=== PATIENT | female | born 1935 | race Caucasian/White ===

== ENCOUNTER 2019-02-14 15:43 | Inpatient (IN) | payer MEDICARE ==
[~2019-02-14] VITALS: Ht 182.9 cm; Wt 69.6 kg
[2019-02-14] MEDS ORDERED: LORA0.5T PO (16:09)
[2019-02-14] MEDS ORDERED: FURO40TA4 PO (16:09)
[2019-02-14] MEDS ORDERED: GABA300C2 PO (16:09)
[2019-02-14] MEDS ORDERED: OMEP20TA8 PO (16:09)
[2019-02-14] MEDS ORDERED: LEVO100T PO (16:09)
[2019-02-14] MEDS ORDERED: FAMO-63 PO (16:09)
[2019-02-14] MEDS ORDERED: CITA20TA9 PO (16:09)
[2019-02-14 16:44] LABS: BACTERIA,URINE FEW /HPF (0-FEW); BILIRUBIN,URINE NEG (NEG); CLARITY,URINE HAZY; COLOR,URINE AMBER; GLUCOSE,URINE NEG (NEG); NITRITE,URINE NEG (NEG); RBC,URINE 0 /HPF (0-2); SQUAMOUS EPITHELIAL CELL,UR OCC /LPF; UROBILINOGEN,URINE 1 mg/dL (0.2 mg/dL); WBC,URINE OCC /HPF (0-4)
[2019-02-14 16:47] LABS: BASO % 0 % (0-3); EOS # 0.1 x10^3/uL (0.0-0.7); EOS % 1 % (0-3); HEMATOCRIT 43.6 % (36.0-47.0); HEMOGLOBIN 14.4 g/dL (12.0-15.5); LYMPH # 2.2 x10^3/uL (1.0-4.8); LYMPH % 24 % (24-48); MEAN CORPUSCULAR HEMOGLOBIN 29 pg (25-35); MEAN CORPUSCULAR HGB CONC 33 g/dL (31-37); MEAN CORPUSCULAR VOLUME 87 fL (79-100); MONO # 0.8 x10^3/uL (0.0-1.1); MONO % 9 % (0-9); NEUT % 66 % (31-73); PLATELET COUNT 192 x10^3/uL (140-400); RED BLOOD COUNT 4.99 x10^6/uL (3.50-5.40); RED CELL DISTRIBUTION WIDTH 12.8 % (11.5-14.5); WHITE BLOOD COUNT 9.1 x10^3/uL (4.0-11.0)
--- NOTE | 2019-02-14 16:47 | PHYS DOC ---
Adult General Chief Complaint Chief Complaint: MEDICAL CLEARANCE HPI HPI Patient is a 83 year old female who presents to the emergency department for medical clearance. The patient has been accepted to the [facility] unit here at [facility]. The patient has been brought to the [facility] for initial medical evaluation prior to admission. Patient has no acute complaints at this time. Has been admitted to the [facility] unit due to reported verbal aggression and changes in behavior. Patient has recently lost her within the last month which she states has caused her considerable sadness. States that she has occasionally had symptoms of indigestion which improved with use of Pepto-Bismol but denies any current symptoms. Review of Systems Review of Systems Constitutional: Denies fever or chills [] Eyes: Denies change in visual acuity, redness, or eye pain [] HENT: Denies nasal congestion or sore throat [] Respiratory: Denies cough or shortness of breath [] Cardiovascular: Denies chest pain or edema[] GI: Denies abdominal pain, nausea, vomiting, bloody stools or diarrhea [] : Denies dysuria or hematuria [] Musculoskeletal: Denies back pain or joint pain [] Integument: Denies rash or skin lesions [] Neurologic: Denies headache, focal weakness or sensory changes [] All other systems were reviewed and found to be within normal limits, except as documented in this note. Allergies Allergies Allergies Coded Allergies Type Severity Reaction Last Updated Verified Sulfa (Sulfonamide Antibiotics) Allergy Unknown 02/14/19 Yes Physical Exam Physical Exam Constitutional: Well developed, well nourished, no acute distress, non-toxic appearance. [] HENT: Normocephalic, atraumatic, bilateral external ears normal, oropharynx moist, no oral exudates, nose normal. [] Eyes: PERRLA, EOMI, conjunctiva normal, no discharge. [] Neck: Normal range of motion, no tenderness, supple, no stridor. [] Cardiovascular:Heart rate regular rhythm, no murmur [] Lungs & Thorax: Bilateral breath sounds clear to auscultation [] Abdomen: Bowel sounds normal, soft, no tenderness, no masses, no pulsatile masses. [] Skin: Warm, dry, no erythema, no rash. [] Back: No tenderness, no CVA tenderness. [] Extremities: No tenderness, no cyanosis, no clubbing, ROM intact, no edema. [] Neurologic: Alert and oriented X 3, normal motor function, normal sensory functi on, no focal deficits noted. [] Psychologic: Affect normal, judgement normal, mood normal. [] Current Patient Data Vital Signs Vital Signs Date Time Temp Pulse Resp B/P (MAP) Pulse Ox O2 Delivery O2 Flow Rate FiO2 02/14/19 16:37 97.9 84 18 95 Room Air Lab Results Laboratory Tests Test 02/14/19 15:50 02/14/19 16:20 Urine Collection Type Unknown Urine Color Lyn Urine Clarity Hazy Urine pH 6.5 Urine Specific [place] 1.020 Urine Protein Neg Urine Glucose (UA) Neg mg/dL Urine Ketones (Stick) Neg mg/dL Urine Blood Neg Urine Nitrite Neg Urine Bilirubin Neg Urine Urobilinogen Dipstick 1 mg/dL Urine Leukocyte Esterase Trace Urine RBC 0 /HPF Urine WBC Occ /HPF Urine Squamous Epithelial Cells Occ /LPF Urine Bacteria Few /HPF White Blood Count 9.1 x10^3/uL Red Blood Count 4.99 x10^6/uL Hemoglobin 14.4 g/dL Hematocrit 43.6 % Mean Corpuscular Volume 87 fL Mean Corpuscular Hemoglobin 29 pg Mean Corpuscular Hemoglobin Concent 33 g/dL Red Cell Distribution Width 12.8 % Platelet Count 192 x10^3/uL Neutrophils (%) (Auto) 66 % Lymphocytes (%) (Auto) 24 % Monocytes (%) (Auto) 9 % Eosinophils (%) (Auto) 1 % Basophils (%) (Auto) 0 % Neutrophils # (Auto) 6.0 x10^3uL Lymphocytes # (Auto) 2.2 x10^3/uL Monocytes # (Auto) 0.8 x10^3/uL Eosinophils # (Auto) 0.1 x10^3/uL Basophils # (Auto) 0.0 x10^3/uL Sodium Level 141 mmol/L Potassium Level 3.8 mmol/L Chloride Level 105 mmol/L Carbon Dioxide Level 32 mmol/L Anion Gap 4 Blood Urea Nitrogen 18 mg/dL Creatinine 1.0 mg/dL Estimated GFR (Cockcroft-Gault) 53.0 BUN/Creatinine Ratio 18 Glucose Level 118 mg/dL Calcium Level 8.7 mg/dL Magnesium Level 1.9 mg/dL Total Bilirubin 0.2 mg/dL Aspartate Amino Transf (AST/SGOT) 14 U/L Alanine Aminotransferase (ALT/SGPT) 19 U/L Alkaline Phosphatase 68 U/L Total Protein 6.5 g/dL Albumin 3.1 g/dL Albumin/Globulin Ratio 0.9 EKG EKG Interpreted by me: Heart rate 74 and a sinus rhythm, leftward axis, single PVC noted, no acute ST/T-wave abnormalities present[] Radiology/Procedures Radiology/Procedures Not performed[] Course & Med Decision Making Course & Med Decision Making Pertinent Labs and Imaging studies reviewed. (See chart for details) The patient is resting comfortably at this time and in no acute distress. Lab work unremarkable. The patient is medically cleared for admission to [facility] unit. Dragon Disclaimer Dragon Disclaimer This electronic medical record was generated, in whole or in part, using a voice recognition dictation system. Departure Departure: Impression: Primary Impression: Medical clearance for psychiatric admission Disposition: ADMITTED INPATIENT Admitting Physician: Other Condition: STABLE Referrals: PCP,NO (PCP) MICKEY NIX MD Feb 14, 2019 16:47
[2019-02-14 17:01] LABS: ALBUMIN 3.1 g/dL (3.4-5.0); ALBUMIN/GLOBULIN RATIO 0.9 (1.0-1.7); CALCIUM 8.7 mg/dL (8.5-10.1); MAGNESIUM 1.9 mg/dL (1.8-2.4); TOTAL BILIRUBIN 0.2 mg/dL (0.2-1.0); TOTAL PROTEIN 6.5 g/dL (6.4-8.2)
[2019-02-14 17:18] LABS: POTASSIUM 3.8 mmol/L (3.5-5.1)
--- NOTE | 2019-02-14 17:54 | EKG ---
[address] [address] Test Date: 2019-02-14 Test Time: 16:50:50 Pat Name: JOHNNY EVANGELISTA Department: Room: Gender: F [employer] Can[employer] Baster: DANY : 1935 Requested By: MICKEY NIX Order Number: [id number] Reading MD: Measurements Intervals Zenda Rate: 74 P: 90 AK: 172 QRS: -7 QRSD: 86 T: 52 QT: 410 QTc: 461 Interpretive Statements SINUS RHYTHM ATRIAL PREMATURE COMPLEX(ES) LEFTWARD AXIS NO SPECIFIC ECG ABNORMALITIES RI6.01 No previous ECG available for comparison
[2019-02-14] MEDS ORDERED: LEVO88TA4 PO (18:53)
[2019-02-14] MEDS ORDERED: POTA20TA4 PO (18:53)
[2019-02-14] MEDS ORDERED: LACT1CAP29 PO (18:53)
[2019-02-14] MEDS ORDERED: [UNRECOGNIZED DRUG - CODE] PO (18:53)
[2019-02-14] MEDS ORDERED: MEMA10TA PO (18:53)
[2019-02-14] MEDS ORDERED: MENT118G TP (18:55)
[2019-02-14 19:05] VITALS: BP 154/83
[2019-02-14] MEDS ORDERED: BISMUTH SUBSALICYLATE 262 MG TAB.CHEW PO PRN (19:15)
[2019-02-14] MEDS ORDERED: METHYL SALICYLATE/MENTHOL TOPICAL OINTMENT 29GM TUBE. TP PRN (19:15)
[2019-02-14] MEDS ORDERED: LORazepam 0.5 MG TABLET PO PRN (19:15)
[2019-02-14] MEDS ORDERED: MAGNESIUM HYDROXIDE 2,400 MG/30 ML ORAL.SUSP. PO PRN (19:30)
[2019-02-14] MEDS ORDERED: MAG HYDROX/AL HYDROX/SIMETH 30 ML ORAL.SUSP PO PRN (19:30)
[2019-02-14] MEDS: MEMANTINE 10 MG TABLET. PO SCH (20:38)
[2019-02-14] MEDS: FAMOTIDINE 20 MG TABLET PO SCH (20:38)
[2019-02-14] MEDS: GABAPENTIN 300 MG CAPSULE. PO SCH (20:38)
[2019-02-15 05:59] VITALS: BP 124/72
[2019-02-15] MEDS: POTASSIUM CHLORIDE 20 MEQ TABLET.ER. PO SCH (07:42)
[2019-02-15] MEDS: PANTOPRAZOLE 40 MG TABLET. PO SCH (07:42)
[2019-02-15] MEDS: LEVOTHYROXINE 88 MCG TABLET PO SCH (07:42)
[2019-02-15] MEDS: CITALOPRAM 20 MG TABLET. PO SCH (07:42)
[2019-02-15] MEDS: LACTOBACILLUS RHAMNOSUS GG 1 CAPSULE. PO SCH (07:43)
[2019-02-15] MEDS: MEMANTINE 10 MG TABLET. PO SCH ×2 (07:44→19:41)
[2019-02-15] MEDS: FUROSEMIDE 40 MG TABLET PO SCH (07:44)
[2019-02-15] MEDS: GABAPENTIN 300 MG CAPSULE. PO SCH ×3 (07:44→19:41)
[2019-02-15] MEDS ORDERED: ARIPiprazole 2 MG TABLET PO SCH (13:45)
[2019-02-15 16:09] VITALS: BP 138/58
[2019-02-15 18:54] LABS: THYROID STIM HORMONE (TSH) 0.018 uIU/mL (0.358-3.740)
[2019-02-15] MEDS: FAMOTIDINE 20 MG TABLET PO SCH (19:41)
[2019-02-15 20:06] LABS: THYROXINE 9.6 ug/dL (4.5-12.0)
[2019-02-16] MEDS: LEVOTHYROXINE 88 MCG TABLET PO SCH (05:52)
[2019-02-16 06:14] VITALS: BP 115/71
[2019-02-16] MEDS: PANTOPRAZOLE 40 MG TABLET. PO SCH (07:38)
[2019-02-16] MEDS: CITALOPRAM 20 MG TABLET. PO SCH (07:41)
[2019-02-16] MEDS: FUROSEMIDE 40 MG TABLET PO SCH (07:41)
[2019-02-16] MEDS: LACTOBACILLUS RHAMNOSUS GG 1 CAPSULE. PO SCH (07:41)
[2019-02-16] MEDS: POTASSIUM CHLORIDE 20 MEQ TABLET.ER. PO SCH (07:41)
[2019-02-16] MEDS: MEMANTINE 10 MG TABLET. PO SCH ×2 (07:42→19:32)
[2019-02-16] MEDS: GABAPENTIN 300 MG CAPSULE. PO SCH ×3 (07:43→19:32)
[2019-02-16] MEDS: ARIPiprazole 2 MG TABLET PO SCH (07:44)
[2019-02-16] MEDS: ACETAMINOPHEN 325 MG TABLET PO PRN (09:09)
--- NOTE | 2019-02-16 10:00 | PSYEV ---
DATE OF SERVICE: 02/15/2019 HISTORY OF PRESENT ILLNESS: This 83-year-old recently female who was [facility] because of increased behavior problems including confusion, verbal aggression, high level of anxiety and also paranoia. The patient was also exhibiting some cognitive deficits and has been under a lot of pressure dealing with her 's a week ago going through the . HISTORY OF PRESENT ILLNESS: The patient admits she had problems with the depression in the past about 10 years ago. At that time, she was dealing with some loss at home and also her doctor prescribed her antidepressants including Celexa and she continued that medication off and on since then. The patient also states her mother had problems with severe depression and she has to be in treatment most of her life and also her depression started when her younger brother was only 18 months old spilled boiling water accidentally and . The patient states her mother never recovered from that event and she was depressed that affected her life too. 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 The patient also stated that she has a full support of her friends and also one of her family member lives close by. The patient has 2 children. The patient also admits she is not sleeping well lately, her mind is racing all the time, and not able to grieve yet. The patient states her appetite is fair. The patient admits depression started approximately 3 months ago because the family and friends concerned about her decline in level of functioning because she was totally exhausted being the caregiver for her and the patient was not sleeping well, not eating well, and also not thinking clearly. PAST PSYCHIATRIC HISTORY: The patient had one depression 10 years ago and treated with antidepressants and currently she is taking Celexa 20 mg daily. The patient also had some counseling in the past. PAST MEDICAL HISTORY: History of sleep apnea, Parkinson's, GERD, fibromyalgia, hypertension, hyperlipidemia, and hypothyroidism. ALLERGIES: THE PATIENT ADMITTED TO BEING ALLERGIC TO SULFA DRUGS. PSYCHOSOCIAL HISTORY: The patient is from [place], [place], [facility] and she is the only child. The patient has high school education. 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 The patient has 2 children and she is close to them. 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 Her a week ago. The patient denies of any alcohol or substance abuse. The patient denied of any emotional or sexual abuse in the past. The patient also states mother diagnosed with depression, was in treatment for a long period of time. MENTAL STATUS EXAMINATION: The patient appeared to be of her stated age, casually dressed, able to make eye contact. The patient is able to walk with the walker; complaints of pain in her right knee. Apparently, she fell recently before coming here, but no visible injuries. The patient's speech was clear, spontaneous with normal rate and rhythm. Her affect and mood showed she had some blunting of affect. The patient did not exhibit any major problems with anxiety, no shakes, no tremors. The patient was able to give fairly good account of her problems and also she had a very good memory for past events and having some difficulty for recent events. The patient states she has been depressed, but never thought about suicide. No prior suicidal attempts. The patient is still struggling to understand what is going on with her. She has been under a lot of pressure dealing with all the problems including her 's and the and she did not have much time to grieve yet. The patient denies of any psychotic symptoms. The patient apparently had episodes she had done things that she cannot remember recently. She is oriented to surroundings. She knew the date and time. The patient was not able to do serial 7's. The patient is able to recall 2 objects out of 3 in 5 minutes. The patient appears to be functioning on an average level of intelligence. The patient's judgment fair, insight limited. STRENGTHS: The patient is apparently in good health, able to walk with the walker and apparently she is able to walk without a walker at home. The patient has high school education, was employed, was , recently . WEAKNESSES: The patient apparently showed some decline in her memory only for recent events. The patient is also depressed that may be affecting her cognitive functions at this time. ADMITTING DIAGNOSES: AXIS I: 1. Major depression, recurrent with psychotic features. 2. Generalized anxiety disorder. 3. Mild cognitive impairment. AXIS II: None. AXIS III: Sleep apnea, Parkinson's, GERD, fibromyalgia, hypertension, hyperlipidemia, and hypothyroidism. INITIAL TREATMENT PLAN: The patient will be admitted to the unit inpatient. The patient will be seen by the psychiatrist daily and also the patient will be seen by Dr. Tapia for physical exam. The patient's lab reviewed. CURRENT MEDICATIONS: Include Lasix 80 mg daily, citalopram 20 mg daily, potassium chloride 20 mEq daily, levothyroxine 88 mcg daily, Namenda 10 mg b.i.d., gabapentin 300 mg t.i.d., Pepcid 20 mg at night. She is also on p.r.n. lorazepam 0.5 mg t.i.d. p.r.n. LABORATORY DATA: The patient's lab reviewed, which are all within normal range except for glucose level of 118. The patient's albumin was 3.1. The patient's urinalysis was clear. The patient will be encouraged to attend all the activities. The patient will be seen daily and the patient will continue on her current medications. LENGTH OF STAY: 7-10 days. DISCHARGE CRITERIA: The patient is able to complete the evaluation and complete the treatment and being stable for 3 days without having any depressive symptoms and able to take care of herself. KELLY LOWERY MD DR: YASMIN/arlene JOB#: [id number] / [id number]
--- NOTE | 2019-02-16 10:01 | CONS ---
DATE OF CONSULTATION: 02/15/2019 CONSULT MEDICAL MANAGEMENT HISTORY OF PRESENT ILLNESS: The patient is an 83-year-old female patient, who was [facility] on account of increasing confusion, verbal aggression, anxious, and paranoid. Her has last week, all this in a background of dementia with behavioral disorder. PAST MEDICAL HISTORY: Significant for hypertension, hyperlipidemia, hypothyroidism, fibromyalgia, gastroesophageal reflux disease, Parkinson's disease, and sleep apnea. PAST PSYCHIATRIC HISTORY: Significant for dementia. PAST SURGICAL HISTORY: Unremarkable. FAMILY HISTORY: Noncontributory. SOCIAL HISTORY: She is . Her only recently and she has a son and daughter. She has never smoked, does not drink alcohol, and she is retired from the [employer]. REVIEW OF SYSTEMS: As per history of present illness. ALLERGIES: SHE IS ALLERGIC TO SULFA DRUGS. MEDICATIONS: She is currently on following medications: She is on gabapentin 300 mg 3 times a day, citalopram hydrobromide 20 mg once a day, lorazepam 0.5 mg 3 times a day as needed for anxiety and agitation. She is on Namenda 10 mg twice a day, potassium chloride 20 mEq once a day, furosemide 80 mg daily, bismuth subsalicylate 2 tablets every hour as needed, famotidine 20 mg at bedtime, omeprazole 20 mg daily, lactobacillus combo for probiotic 2 capsules p.o. daily, levothyroxine sodium 88 mcg once a day, menthol for Biofreeze 1 application topically 4 times a day. PHYSICAL EXAMINATION: GENERAL: On examining her, the patient was sitting at the edge of the bed comfortably in no apparent respiratory distress. There was no pallor, jaundice, cyanosis, or thyromegaly. No jugular venous distension. No limb edema. VITAL SIGNS: Her heart rate was 88, blood pressure is 124/72, temperature was 98.2, respiratory rate was 18 and oxygen saturation was 97% on room air. HEAD, EYES, EARS, NOSE, AND THROAT: Showed normocephalic, atraumatic. NECK: Supple. HEART: Showed normal first and second heart sounds. No gallop, rub or murmur. CHEST: Clear to auscultation. No crepitation or rhonchi. ABDOMEN: Distended, soft, no gallop. No guarding or rigidity. No organomegaly. All hernial orifices intact. Bowel sounds normal. NEUROLOGIC: She is awake, alert, responding appropriately. All cranial nerves intact. EXTREMITIES: She moves extremities without difficulty. She ambulates without assistance or assistive devices. LABORATORY DATA: Showed that her white cell count of 9100, hemoglobin 14.4, hematocrit 43.6, MCV 87 and platelet count 292,000 with normal manual differential. Her chemistry showed a serum sodium 141, potassium 3.8, chloride 105, bicarbonate 32, anion gap of 4, BUN 18, creatinine 1, estimated GFR was 53 mL per minute. Her glucose was 118, calcium was 8.7, and magnesium was 1.9. Total bilirubin, AST, ALT, alkaline phosphatase were normal. Total protein was 6.5, albumin 3.1. Her urinalysis was essentially unremarkable and was negative. It was negative for nitrite, trace of leukocyte esterase, no rbc's, occasional wbc's, and very few bacteria. IMPRESSION: In summary, this is an 83-year-old female patient, who was admitted on account of increasing confusion, verbal aggression, anxious, paranoid, her on the last week, all this in a background of dementia with behavioral disorder. Medically, she is known to have hypothyroidism, gastroesophageal reflux disease. She has also peripheral neuropathy, hyperlipidemia, fibromyalgia, obstructive sleep apnea, and Parkinson's disease. All in all, the patient seems to be stable. All her vital signs are within normal range. Her lab work are all normal. Thank you, Dr. Jaquez, for allowing me to participate in the care of this patient. HIREN WONG MD DR: TREVON/arlene JOB#: [id number] / [id number]
[2019-02-16 15:41] VITALS: BP 134/71
[2019-02-16] MEDS: CHOLECALCIFEROL (VITAMIN D3) 50,000 UNIT CAPSULE PO SCH (18:33)
[2019-02-16] MEDS: FAMOTIDINE 20 MG TABLET PO SCH (19:32)
--- NOTE | 2019-02-17 03:48 | PN ---
DATE: 02/16/2019 SUBJECTIVE: The patient was seen today, met with the staff, chart reviewed. The patient continues to adjust to the unit, still experiencing high level of anxiety, occasional confusional episodes, but most of the time she is oriented to her surroundings. The patient is still anxious and nervous. The patient denies feeling depressed today. OBSERVATION: VITAL SIGNS: Temperature 98.0, blood pressure 115/71, pulse 77, respirations 20, O2 sat 95%. Slept about 7 hours last night. The patient's appetite improved. LABORATORY DATA: Reviewed, which are all within the normal range except for hemoglobin A1c was 6, triglycerides 210, LDL 66, HDL 25. TSH was 0.018. CURRENT MEDICATIONS: Include Abilify 1 mg daily, citalopram 20 mg daily, Namenda 10 mg b.i.d., gabapentin 300 mg t.i.d., lorazepam 0.5 mg t.i.d. p.r.n. The patient is currently not presenting with any major side effects, no major medical issues. The patient is participating in all the activities. The patient still has mild cognitive deficits. The patient is oriented to surroundings. The patient's affect is somewhat blunted. The patient is not complaining of any problems with increased anxiety and agitation at this time. ASSESSMENT: 1. Major depression, recurrent with psychotic features. 2. Generalized anxiety disorder. 3. Mild cognitive impairment. PLAN: To continue with the treatment. Continue to monitor for any side effects. LENGTH OF STAY: 7-10 days. KELLY LOWERY MD DR: YASMIN/arlene JOB#: [id number] / [id number]
[2019-02-17] MEDS: LEVOTHYROXINE 88 MCG TABLET PO SCH (05:41)
[2019-02-17 06:01] VITALS: BP 123/76
[2019-02-17] MEDS: LACTOBACILLUS RHAMNOSUS GG 1 CAPSULE. PO SCH (08:09)
[2019-02-17] MEDS: POTASSIUM CHLORIDE 20 MEQ TABLET.ER. PO SCH (08:09)
[2019-02-17] MEDS: FUROSEMIDE 40 MG TABLET PO SCH (08:09)
[2019-02-17] MEDS: ARIPiprazole 2 MG TABLET PO SCH (08:09)
[2019-02-17] MEDS: GABAPENTIN 300 MG CAPSULE. PO SCH ×3 (08:10→19:29)
[2019-02-17] MEDS: MEMANTINE 10 MG TABLET. PO SCH ×2 (08:10→19:29)
[2019-02-17] MEDS: CITALOPRAM 20 MG TABLET. PO SCH (08:10)
[2019-02-17] MEDS: PANTOPRAZOLE 40 MG TABLET. PO SCH (08:10)
[2019-02-17 15:51] VITALS: BP 123/71
[2019-02-17] MEDS: FAMOTIDINE 20 MG TABLET PO SCH (19:29)
[2019-02-18] MEDS: LEVOTHYROXINE 88 MCG TABLET PO SCH (05:41)
[2019-02-18 06:04] VITALS: BP 155/71
[2019-02-18] MEDS: POTASSIUM CHLORIDE 20 MEQ TABLET.ER. PO SCH (07:47)
[2019-02-18] MEDS: FUROSEMIDE 40 MG TABLET PO SCH (07:47)
[2019-02-18] MEDS: MEMANTINE 10 MG TABLET. PO SCH ×2 (07:47→19:26)
[2019-02-18] MEDS: ARIPiprazole 2 MG TABLET PO SCH (07:50)
[2019-02-18] MEDS: LACTOBACILLUS RHAMNOSUS GG 1 CAPSULE. PO SCH (07:50)
[2019-02-18] MEDS: PANTOPRAZOLE 40 MG TABLET. PO SCH (07:51)
[2019-02-18] MEDS: CITALOPRAM 20 MG TABLET. PO SCH (07:51)
[2019-02-18] MEDS: GABAPENTIN 300 MG CAPSULE. PO SCH ×3 (07:54→19:27)
[2019-02-18] MEDS: ACETAMINOPHEN 325 MG TABLET PO PRN (08:41)
--- NOTE | 2019-02-18 15:00 | PN ---
DATE: 02/17/2019 SUBJECTIVE: The patient was seen today, met with the staff, chart reviewed and also participated in the treatment review conference and also spoke with the patient's family members, daughter and son with regard to the patient's current problems and progress. Staff reports that patient is improving, still having difficulty communicating her feelings at times and has been tearful at times, talking about losing her , but no evidence of any major behavior problems. The patient is able to orient herself interacting with the staff and residents, but the family reports on their visit, they saw patient being confused and also she told them there was no outside. Family also reported that the patient had a CT scan prior to coming here and lately she is also having problems with slurred speech at times and wanted to know whether she could have an MRI. OBSERVATION: VITAL SIGNS: Temperature 97.2, blood pressure 123/76, pulse 70, respirations 18, O2 sat 96%. Slept about 7 hours last night. The patient's appetite improved. Staff reports no major problems, no side effects. The patient's lab reviewed. The patient's 25-OH vitamin D level was 18.1, which was low. The patient's current medications includes Abilify 1 mg daily, citalopram 20 mg daily, Namenda 10 mg b.i.d., gabapentin 300 mg t.i.d., also lorazepam 0.5 mg t.i.d. p.r.n. The patient continued to exhibit mild cognitive deficits, but she is oriented to surroundings. The patient's affect somewhat blunted. ASSESSMENT: 1. Major depression, recurrent with psychotic features. 2. Generalized anxiety disorder. 3. Mild cognitive impairment. PLAN: To continue with the treatment. Also, request for Neurology consult and also if possible to get MRI of the brain to rule out transient ischemic attacks. LENGTH OF STAY: Seven days. KELLY LOWERY MD DR: YASMIN/arlene JOB#: [id number] / [id number]
[2019-02-18 15:46] VITALS: BP 100/56
[2019-02-18] MEDS: FAMOTIDINE 20 MG TABLET PO SCH (19:26)
--- NOTE | 2019-02-19 05:35 | PN ---
DATE: 02/18/2019 SUBJECTIVE: The patient was seen today, met with the staff, chart reviewed. Staff reports no major problems. The patient still tends to isolate herself, but her ADLs are adequate. The patient is sleeping better. Appetite is fair. The patient admits to feeling depressed being here and wanting to go home. OBSERVATION: VITAL SIGNS: Temperature 97.9, blood pressure 154/71, pulse 62, respirations 20, O2 sat 96%. GENERAL: Slept about 8 hours last night. The patient is not complaining of having any problems. No evidence of any psychotic symptoms. The patient is oriented to surroundings. She knew the date, time, month and year. The patient admits sometimes she has difficulty with recall. The patient was able to repeat 3 objects and able to recall 3 objects in 5 minutes. The patient still has some problems with attention span and concentration. The patient does admit she has difficulty at times forgetting things, but not to the point that never been confused. The patient also asked about her statement to the family members when they visited her that she was mixing up with the day and night and also she told them she saw snow outside. The patient denies about this. Staff since admission has not observed any evidence of major cognitive deficits, confusion, or having any psychosis. MEDICATIONS: The patient's current medications include Abilify 1 mg daily, citalopram 20 mg daily, Namenda 10 mg b.i.d., gabapentin 300 mg t.i.d. She is also on lorazepam 0.5 mg t.i.d. p.r.n. ASSESSMENT: 1. Major depression, recurrent with psychotic features. 2. Generalized anxiety disorder. 3. Mild cognitive impairment. PLAN: To continue with the treatment. The patient is not having any side effects. We are also requesting a Neurology consult. KELLY LOWERY MD DR: YASMIN/arlene JOB#: [id number] / [id number]
[2019-02-19] MEDS: LEVOTHYROXINE 88 MCG TABLET PO SCH (05:44)
[2019-02-19 06:09] VITALS: BP 151/74
[2019-02-19] MEDS: ARIPiprazole 2 MG TABLET PO SCH (07:33)
[2019-02-19] MEDS: PANTOPRAZOLE 40 MG TABLET. PO SCH (07:35)
[2019-02-19] MEDS: POTASSIUM CHLORIDE 20 MEQ TABLET.ER. PO SCH ×2 (07:35→07:48)
[2019-02-19] MEDS: MEMANTINE 10 MG TABLET. PO SCH ×2 (07:48→19:28)
[2019-02-19] MEDS: FUROSEMIDE 40 MG TABLET PO SCH (07:50)
[2019-02-19] MEDS: LACTOBACILLUS RHAMNOSUS GG 1 CAPSULE. PO SCH (07:51)
[2019-02-19] MEDS: CITALOPRAM 20 MG TABLET. PO SCH (07:52)
[2019-02-19] MEDS: GABAPENTIN 300 MG CAPSULE. PO SCH ×3 (07:59→19:29)
[2019-02-19] MEDS: ACETAMINOPHEN 325 MG TABLET PO PRN (11:00)
[2019-02-19 15:41] VITALS: BP 129/75
[2019-02-19] MEDS: FAMOTIDINE 20 MG TABLET PO SCH (19:28)
--- NOTE | 2019-02-19 21:56 | PDOC ---
Exam Note: Luis E Note: Please also refer to the separate dictated note~for this date of service dictated separately.~Patient seen individually. Discussed the patient with Nursing staff reviewed the chart.~Reviewed interim history and current functioning. Reviewed vital signs,~Labs/ Radiology~and current medications noted below. Continue current treatment with the changes noted in the dictated addendum note Assessment: Vital Signs/I&O: Vital Signs Date Time Temp Pulse Resp B/P (MAP) Pulse Ox O2 Delivery O2 Flow Rate FiO2 02/19/19 15:41 98.6 85 18 129/75 (93) 96 Room Air I & O 02/18/19 02/18/19 02/19/19 14:59 22:59 06:59 Intake Total 720 ml 360 ml Balance 720 ml 360 ml Current Medications: I have reviewed the current psychotropics carefully including drug interactions. Risk benefit ratio favors no change other than as noted in my dictated progress note. Diagnosis: Problems: (1) Anxiety disorder (2) Major depressive disorder, recurrent episode (3) Mild cognitive impairment JESSICA OSPINA MD Feb 19, 2019 21:56
--- NOTE | 2019-02-20 01:01 | CONS ---
DATE OF CONSULTATION: REFERRING PHYSICIAN: Dr. Jaquez/Sudhakar. REASON FOR CONSULTATION: Worsening of dementia. HISTORY OF PRESENT ILLNESS: This is an 83-year-old right-handed female who was admitted on 02/14/2019 on account of increasing symptoms of confusion, paranoid, anxiety and verbal aggressive behavior. The symptoms have been present for the last few weeks and worsened after her last week. Neuro consult was requested because of acute mental status changes. During the interview, the patient stated she is very sad because she lost her who recently. She complains of being tired, having generalized muscle pain and she related that to fibromyalgia along with global headaches. The patient also complains of arthritic pain all over her body. She denies chest pain, shortness of breath or palpitation, dysarthria, dysphagia, weakness or paresthesia. PAST MEDICAL HISTORY: Significant for hypertension, hyperlipidemia, fibromyalgia, hypothyroidism, GERD, Parkinson's disease and sleep apnea. PAST SURGICAL HISTORY: Negative. PSYCHIATRIC HISTORY: Significant for dementia. FAMILY HISTORY: Noncontributory. SOCIAL HISTORY: The patient is . Her recently. She denies smoking, alcohol drinking, or illicit drug use. She is retired from government job. ALLERGIES: SULFA DRUGS. CURRENT HOME MEDICATIONS: Gabapentin 300 mg 3 times daily, citalopram 20 mg daily, lorazepam 0.5 mg 3 times daily for anxiety and agitation, Namenda 10 mg twice daily, potassium 20 mEq daily, Lasix 80 mg daily, famotidine 20 mg at bedtime, omeprazole 20 mg daily, levothyroxine 88 mcg daily. REVIEW OF SYSTEMS: A 10-point review of system was performed as mentioned above in history of present illness. PHYSICAL EXAMINATION: GENERAL: Well-developed, well-nourished female, not in acute distress. VITAL SIGNS: Blood pressure 100/56, respiratory rate is 17, pulse is 67 and regular, temperature 98, oxygen saturation 97% on room air. HEENT: Normocephalic, atraumatic, otherwise unremarkable. NECK: Supple, negative for carotid bruit, lymphadenopathy or thyromegaly. LUNGS: Clear to A and P. CARDIOVASCULAR: Regular rhythm, normal S1, S2. There is no S3, S4 or murmur. ABDOMEN: Soft. Bowel sounds positive. EXTREMITIES: Negative for cyanosis, clubbing or pitting edema. MENTAL STATUS: The patient is alert and oriented x 3. The speech is fluent. There is no language dysfunction. Memory patient recalls 2/3 immediately and after 1 and 3 minutes. Judgment and abstract thinking are normal. The patient denies hallucination or delusion. The patient has good judgment and patient has good calculation. CRANIAL NERVES: Visual lund are full. The pupils are reactive to light and accommodation. The extraocular movements are intact. There is no nystagmus. There is no facial motor or sensory deficit. Hearing is intact bilaterally. The palate is elevated symmetrically. Sternocleidomastoid muscles are powerful bilaterally. The patient shrugs her shoulders symmetrically, protrudes her tongue in the midline without fasciculation or atrophy. MOTOR EXAMINATION: No focal muscle bulk seen. The tone was normal. The strength was 4/5 throughout. Sensory examination revealed normal pinprick, light touch, vibratory and position senses. Deep tendon reflexes were symmetric and hypoactive with absent Achilles responses. Gait: The patient has a good stand and she uses a walker for ambulation. LABORATORY DATA: From 02/14/2019, CBC revealed white blood cells of 9.1, hemoglobin 14.4, hematocrit 43.6, platelet count 192,000. Chemistry revealed sodium 141, potassium 3.8, chloride 105, CO2 at 32, BUN 18, creatinine 1, glucose 118. Hemoglobin A1c is 6, calcium 8.7, magnesium is normal. Iron is normal. Liver enzymes are normal. Lipid profile revealed high cholesterol at 210 with low HDL at 25 and low vitamin D and low TSH with normal T4 and T3. Urinalysis, trace of leukocyte esterase, otherwise, unremarkable. IMPRESSION: 1. History of dementia with current exacerbation, probably due to recent 's . 2. Major depression with possible intermittent psychotic features. 3. Anxiety disorder. 4. Multiple medical problems include gastroesophageal reflux disease, obstructive sleep apnea, fibromyalgia, hypertension, hyperlipidemia and hypothyroidism. RECOMMENDATIONS: 1. Continue with current medical and psychiatric care. 2. We will follow up the patient and evaluate her again as she has had history of Parkinson disease. M Jamal SKAGGS MD DR: KWADWO/arlene JOB#: [id number] / [id number]
[2019-02-20] MEDS: LEVOTHYROXINE 88 MCG TABLET PO SCH (05:27)
[2019-02-20 06:06] VITALS: BP 154/66
[2019-02-20] MEDS: FUROSEMIDE 40 MG TABLET PO SCH (08:16)
[2019-02-20] MEDS: LACTOBACILLUS RHAMNOSUS GG 1 CAPSULE. PO SCH (08:16)
[2019-02-20] MEDS: ARIPiprazole 2 MG TABLET PO SCH (08:17)
[2019-02-20] MEDS: PANTOPRAZOLE 40 MG TABLET. PO SCH (08:19)
[2019-02-20] MEDS: POTASSIUM CHLORIDE 20 MEQ TABLET.ER. PO SCH (08:19)
[2019-02-20] MEDS: MEMANTINE 10 MG TABLET. PO SCH ×2 (08:19→20:53)
[2019-02-20] MEDS: SERTRALINE 50 MG TABLET. PO SCH (08:21)
[2019-02-20] MEDS: GABAPENTIN 300 MG CAPSULE. PO SCH ×3 (08:21→20:53)
--- NOTE | 2019-02-20 10:02 | RAD ---
EXAM: CT HEAD WITHOUT CONTRAST. HISTORY: Altered mental status, falls. TECHNIQUE: Computed tomography of the head was performed without intravenous contrast. COMPARISON: None. FINDINGS: There is no intracranial hemorrhage. There are chronic lacunar infarcts bilaterally in the caudate heads. There is moderate chronic microangiopathic white matter change elsewhere. Prominence of the lateral ventricles and hemispheric sulci indicates mild atrophy. The visualized paranasal sinuses appear clear. The orbits are unremarkable. The temporal bones are unremarkable. The calvarium reveals no suspicious lesions. There are atherosclerotic calcifications of the internal carotid and vertebral arteries. IMPRESSION: 1. No acute intracranial findings. 2. Bilateral basal ganglia chronic lacunar infarction. Moderate chronic microangiopathic white matter change. 3. Mild chronic microangiopathic white matter change. *One or more of the following individualized dose reduction techniques were utilized for this examination: 1. Automated exposure control. 2. Adjustment of the mA and/or kV according to patient size. 3. Use of iterative reconstruction technique. Electronically signed by: Joana Quiroz MD (02/20/2019 9:59 AM) [facility]
[2019-02-20 16:43] VITALS: BP 111/78
[2019-02-20] MEDS: FAMOTIDINE 20 MG TABLET PO SCH (20:52)
--- NOTE | 2019-02-20 22:36 | PDOC ---
Exam Note: Luis E Note: Please also refer to the separate dictated note~for this date of service dictated separately.~Patient seen individually. Discussed the patient with Nursing staff reviewed the chart.~Reviewed interim history and current functioning. Reviewed vital signs,~Labs/ Radiology~and current medications noted below. Continue current treatment with the changes noted in the dictated addendum note Assessment: Vital Signs/I&O: Vital Signs Date Time Temp Pulse Resp B/P (MAP) Pulse Ox O2 Delivery O2 Flow Rate FiO2 02/20/19 16:43 97.8 73 18 111/78 (89) 96 02/19/19 15:41 Room Air I & O 02/19/19 02/19/19 02/20/19 14:59 22:59 06:59 Intake Total 600 ml 360 ml 120 ml Balance 600 ml 360 ml 120 ml Current Medications: Meds: Current Medications Medications (Trade) Dose Ordered Sig/Deuce Route PRN Reason Start Time Stop Time Status Last Admin Dose Admin Sertraline HCl (Zoloft) 50 mg DAILY PO 02/20/19 09:00 02/20/19 08:21 I have reviewed the current psychotropics carefully including drug interactions. Risk benefit ratio favors no change other than as noted in my dictated progress note. Diagnosis: Problems: (1) Anxiety disorder (2) Major depressive disorder, recurrent episode (3) Mild cognitive impairment JESSICA OSPINA MD Feb 20, 2019 22:36
[2019-02-21 06:02] VITALS: BP 149/72
[2019-02-21] MEDS: LEVOTHYROXINE 88 MCG TABLET PO SCH (06:19)
[2019-02-21] MEDS: ACETAMINOPHEN 325 MG TABLET PO PRN (06:19)
[2019-02-21] MEDS: LACTOBACILLUS RHAMNOSUS GG 1 CAPSULE. PO SCH (08:05)
[2019-02-21] MEDS: GABAPENTIN 300 MG CAPSULE. PO SCH ×3 (08:06→19:58)
[2019-02-21] MEDS: SERTRALINE 50 MG TABLET. PO SCH (08:06)
[2019-02-21] MEDS: ARIPiprazole 2 MG TABLET PO SCH (08:06)
[2019-02-21] MEDS: MEMANTINE 10 MG TABLET. PO SCH ×2 (08:06→19:57)
[2019-02-21] MEDS: PANTOPRAZOLE 40 MG TABLET. PO SCH (08:06)
[2019-02-21 08:07] LABS: BASO % 1 % (0-3); EOS # 0.1 x10^3/uL (0.0-0.7); EOS % 1 % (0-3); HEMATOCRIT 42.3 % (36.0-47.0); HEMOGLOBIN 13.9 g/dL (12.0-15.5); LYMPH # 1.8 x10^3/uL (1.0-4.8); LYMPH % 24 % (24-48); MEAN CORPUSCULAR HEMOGLOBIN 29 pg (25-35); MEAN CORPUSCULAR HGB CONC 33 g/dL (31-37); MEAN CORPUSCULAR VOLUME 88 fL (79-100); MONO # 0.7 x10^3/uL (0.0-1.1); MONO % 10 % (0-9); NEUT # 4.8 x10^3uL (1.8-7.7); NEUT % 65 % (31-73); PLATELET COUNT 155 x10^3/uL (140-400); RED CELL DISTRIBUTION WIDTH 13.3 % (11.5-14.5); WHITE BLOOD COUNT 7.4 x10^3/uL (4.0-11.0)
[2019-02-21] MEDS: POTASSIUM CHLORIDE 20 MEQ TABLET.ER. PO SCH (08:07)
[2019-02-21] MEDS: FUROSEMIDE 40 MG TABLET PO SCH (08:07)
[2019-02-21 08:23] LABS: ALBUMIN 3.2 g/dL (3.4-5.0); ALBUMIN/GLOBULIN RATIO 1.1 (1.0-1.7); CALCIUM 8.9 mg/dL (8.5-10.1); CREATININE 0.8 mg/dL (0.6-1.0); GFR 68.5; POTASSIUM 3.9 mmol/L (3.5-5.1); TOTAL BILIRUBIN 0.5 mg/dL (0.2-1.0); TOTAL PROTEIN 6.2 g/dL (6.4-8.2)
[2019-02-21 16:29] VITALS: BP 133/64
--- NOTE | 2019-02-21 17:36 | PN ---
DATE: 02/19/2019 PSYCHIATRIC PROGRESS NOTE This late entry, 02/19/2019, covers the elements not covered in my initial note. SUBJECTIVE: I met with the patient in the evening of 02/19/2019. Reviewed information from Dr. Barahona, who had covered for me over the past one week or so. The patient slept 6-1/4 hours previous night. She has been confused about the time. Her family visited in the afternoon and she felt her grandson was her son-in-law. Reviewed her past history. No history of alcohol abuse. about 2 weeks back and had been in the retirement for about 6 weeks. REVIEW OF SYSTEMS: Ambulation impaired with walker. No CV, , pulmonary, eye, ENT system symptoms on review. MENTAL STATUS EXAM: Oriented to herself, situation at times. Speech, moderate latency, coherent. Insight, judgment, recent memory is impaired. Language function intact. Attention span short. Mood and affect somewhat withdrawn, anxious, irritable at times, depressed. LABORATORY DATA: Reviewed. IMPRESSION: Major neurocognitive disorder, Alzheimer, vascular with delusion; depression, behavioral disturbance, major depressive disorder; anxiety disorder, unspecified. Rest unchanged. UA shows no growth on culture. PLAN: Change Celexa 20 mg a day to Zoloft 50 mg a day. Maintain Namenda 10 mg b.i.d., Abilify 1 mg a day. Make further adjustments as clinically indicated. JESSICA OSPINA MD DR: INOCENCIA/arlene JOB#: [id number] / [id number]
[2019-02-21] MEDS: FAMOTIDINE 20 MG TABLET PO SCH (19:57)
--- NOTE | 2019-02-21 22:29 | PDOC ---
Exam Note: Luis E Note: Please also refer to the separate dictated note~for this date of service dictated separately.~Patient seen individually. Discussed the patient with Nursing staff reviewed the chart.~Reviewed interim history and current functioning. Reviewed vital signs,~Labs/ Radiology~and current medications noted below. Continue current treatment with the changes noted in the dictated addendum note Assessment: Vital Signs/I&O: Vital Signs Date Time Temp Pulse Resp B/P (MAP) Pulse Ox O2 Delivery O2 Flow Rate FiO2 02/21/19 16:29 97.6 78 20 133/64 (87) 97 02/19/19 15:41 Room Air I & O 02/20/19 02/20/19 02/21/19 14:59 22:59 06:59 Intake Total 960 ml 480 ml Balance 960 ml 480 ml Labs: Laboratory Tests Test 02/21/19 07:26 White Blood Count 7.4 x10^3/uL (4.0-11.0) Red Blood Count 4.80 x10^6/uL (3.50-5.40) Hemoglobin 13.9 g/dL (12.0-15.5) Hematocrit 42.3 % (36.0-47.0) Mean Corpuscular Volume 88 fL (79-100) Mean Corpuscular Hemoglobin 29 pg (25-35) Mean Corpuscular Hemoglobin Concent 33 g/dL (31-37) Red Cell Distribution Width 13.3 % (11.5-14.5) Platelet Count 155 x10^3/uL (140-400) Neutrophils (%) (Auto) 65 % (31-73) Lymphocytes (%) (Auto) 24 % (24-48) Monocytes (%) (Auto) 10 % (0-9) H Eosinophils (%) (Auto) 1 % (0-3) Basophils (%) (Auto) 1 % (0-3) Neutrophils # (Auto) 4.8 x10^3uL (1.8-7.7) Lymphocytes # (Auto) 1.8 x10^3/uL (1.0-4.8) Monocytes # (Auto) 0.7 x10^3/uL (0.0-1.1) Eosinophils # (Auto) 0.1 x10^3/uL (0.0-0.7) Basophils # (Auto) 0.0 x10^3/uL (0.0-0.2) Sodium Level 142 mmol/L (136-145) Potassium Level 3.9 mmol/L (3.5-5.1) Chloride Level 106 mmol/L (98-107) Carbon Dioxide Level 31 mmol/L (21-32) Anion Gap 5 (6-14) L Blood Urea Nitrogen 19 mg/dL (7-20) Creatinine 0.8 mg/dL (0.6-1.0) Estimated GFR (Cockcroft-Gault) 68.5 BUN/Creatinine Ratio 24 (6-20) H Glucose Level 108 mg/dL (70-99) H Calcium Level 8.9 mg/dL (8.5-10.1) Total Bilirubin 0.5 mg/dL (0.2-1.0) Aspartate Amino Transferase (AST) 21 U/L (15-37) Alanine Aminotransferase (ALT) 20 U/L (14-59) Alkaline Phosphatase 50 U/L (46-116) Total Protein 6.2 g/dL (6.4-8.2) L Albumin 3.2 g/dL (3.4-5.0) L Albumin/Globulin Ratio 1.1 (1.0-1.7) Current Medications: I have reviewed the current psychotropics carefully including drug interactions. Risk benefit ratio favors no change other than as noted in my dictated progress note. Diagnosis: Problems: (1) Anxiety disorder (2) Major depressive disorder, recurrent episode (3) Mild cognitive impairment JESSICA OSPINA MD Feb 21, 2019 22:29
--- NOTE | 2019-02-21 22:53 | PN ---
DATE: 02/19/2019 SUBJECTIVE: The patient denies any new medical or neurological complaints. Sometime, she became somewhat confused about time; however, it has not reported by staff any events of confusion or acute mental status changes. OBJECTIVE: GENERAL: Well-developed, well-nourished female, not in acute distress. VITAL SIGNS: Blood pressure 151/74, respiratory rate 16, pulse 75, temperature 97.8, oxygen saturation 97% on room air. HEENT: Normocephalic, atraumatic, otherwise unremarkable. NECK: Supple. Negative for carotid bruit, lymphadenopathy or thyromegaly. LUNGS: Clear to A and P. CARDIOVASCULAR: Regular rhythm, normal S1, S2. There is no S3, S4 or murmur. ABDOMEN: Soft. Bowel sounds positive. EXTREMITIES: Negative for cyanosis, clubbing or pitting edema. NEUROLOGICAL EXAM: Mental status: The patient is alert and oriented x 3. Speech is fluent. There is no language dysfunction. The patient recalled 2/3 immediately and after 1 at 3 minutes. Judgment and abstract thinking are normal. The patient denies hallucination or delusion. Cranial nerves are intact. Motor Examination: No focal muscle bulk was seen. The tone was normal. The strength was 4/5 throughout. Sensory examination revealed normal pinprick, light touch, vibratory and position senses. Deep tendon reflexes were symmetric and hypoactive with absent Achilles responses. Gait: The patient has good stance; however, she uses a walker for ambulation. IMPRESSION: 1. History of dementia with possible recurrent exacerbation; however, her mental status has been improved since admission. 2. Major depression, anxiety disorders. 3. Multiple medical problems include gastroesophageal reflux disease, fibromyalgia, hypertension, hyperlipidemia, obstructive sleep apnea and hypothyroidism. RECOMMENDATIONS: 1. Would continue with current medical and psychiatric care. 2. Physical therapy evaluation for her gait. M Jamal SKAGGS MD DR: KWADWO/arlene JOB#: [id number] / [id number]
[2019-02-22 06:04] VITALS: BP 139/72
[2019-02-22] MEDS: LEVOTHYROXINE 88 MCG TABLET PO SCH (06:20)
[2019-02-22] MEDS: ACETAMINOPHEN 325 MG TABLET PO PRN (06:24)
[2019-02-22] MEDS: FUROSEMIDE 40 MG TABLET PO SCH (08:00)
[2019-02-22] MEDS: MEMANTINE 10 MG TABLET. PO SCH ×2 (08:00→19:24)
[2019-02-22] MEDS: ARIPiprazole 2 MG TABLET PO SCH (08:00)
[2019-02-22] MEDS: POTASSIUM CHLORIDE 20 MEQ TABLET.ER. PO SCH (08:01)
[2019-02-22] MEDS: SERTRALINE 50 MG TABLET. PO SCH (08:01)
[2019-02-22] MEDS: LACTOBACILLUS RHAMNOSUS GG 1 CAPSULE. PO SCH (08:01)
[2019-02-22] MEDS: PANTOPRAZOLE 40 MG TABLET. PO SCH (08:01)
[2019-02-22] MEDS: GABAPENTIN 300 MG CAPSULE. PO SCH ×3 (08:03→19:24)
--- NOTE | 2019-02-22 15:54 | PN ---
DATE: 02/20/2019 PSYCHIATRIC PROGRESS NOTE This late entry 02/20/2019 covers elements not covered in my initial note. SUBJECTIVE: I met with the patient in the evening. The patient slept [address] head shows chronic microvascular changes, nothing acute. She remains somewhat anxious with short-term memory deficits, but reasonably oriented. REVIEW OF SYSTEMS: No CV, , pulmonary, eye, ENT system symptoms on review. MENTAL STATUS EXAM: Oriented to herself and situation. Speech is coherent, abstraction fair, computation impaired, language function intact, attention span short. Mood and affect showing ongoing anxiety and depressive symptoms, but improved. LABORATORY DATA: Reviewed. IMPRESSION: Unchanged from initial note. PLAN: No change from initial note. MAN Reg OSPINA MD DR: INOCENCIA/arlene JOB#: [id number] / [id number]
[2019-02-22 16:05] VITALS: BP 128/79
[2019-02-22] MEDS: FAMOTIDINE 20 MG TABLET PO SCH (19:24)
--- NOTE | 2019-02-22 22:00 | PN ---
DATE: 02/21/2019 PSYCHIATRIC PROGRESS NOTE This is a late entry 02/21/2019, covers the elements not covered in my initial note. SUBJECTIVE: I met with the patient evening of 02/21/2019. The patient slept 6 hours previous night. She has been socializing with one of the other patients who is quite forgetful, but has been fairly appropriate. REVIEW OF SYSTEMS: No CV, , pulmonary, eye, ENT system symptoms on review. MENTAL STATUS EXAM: Oriented to herself and situation. Speech is coherent, abstraction fair, computation somewhat impaired, language function intact, attention span short. Mood and affect showing improvement. No active suicidal ideation. She has some mild short term memory deficits. LABORATORY DATA: Reviewed. IMPRESSION: Unchanged from initial note. PLAN: The patient is currently on Zoloft 75 mg a day. After she has had 3 doses of this, we will increase to 100 mg a day. Continue rest unchanged. JESSICA OSPINA MD DR: INOCENCIA/arlene JOB#: [id number] / [id number]
--- NOTE | 2019-02-22 22:32 | PDOC ---
Exam Note: Luis E Note: Please also refer to the separate dictated note~for this date of service dictated separately.~Patient seen individually. Discussed the patient with Nursing staff reviewed the chart.~Reviewed interim history and current functioning. Reviewed vital signs,~Labs/ Radiology~and current medications noted below. Continue current treatment with the changes noted in the dictated addendum note Assessment: Vital Signs/I&O: Vital Signs Date Time Temp Pulse Resp B/P (MAP) Pulse Ox O2 Delivery O2 Flow Rate FiO2 02/22/19 16:05 97.3 65 16 128/79 (95) 97 02/22/19 06:04 Room Air I & O 02/21/19 02/21/19 02/22/19 14:59 22:59 06:59 Intake Total 720 ml 480 ml Balance 720 ml 480 ml Current Medications: I have reviewed the current psychotropics carefully including drug interactions. Risk benefit ratio favors no change other than as noted in my dictated progress note. Diagnosis: Problems: (1) Anxiety disorder (2) Major depressive disorder, recurrent episode (3) Mild cognitive impairment JESSICA OSPINA MD Feb 22, 2019 22:32
[2019-02-23 06:02] VITALS: BP 164/80
[2019-02-23] MEDS: LEVOTHYROXINE 88 MCG TABLET PO SCH (06:03)
[2019-02-23] MEDS: PANTOPRAZOLE 40 MG TABLET. PO SCH (07:39)
[2019-02-23] MEDS: POTASSIUM CHLORIDE 20 MEQ TABLET.ER. PO SCH (07:40)
[2019-02-23] MEDS: ARIPiprazole 2 MG TABLET PO SCH (07:40)
[2019-02-23] MEDS: LACTOBACILLUS RHAMNOSUS GG 1 CAPSULE. PO SCH (07:42)
[2019-02-23] MEDS: FUROSEMIDE 40 MG TABLET PO SCH (07:44)
[2019-02-23] MEDS: MEMANTINE 10 MG TABLET. PO SCH ×2 (07:44→19:10)
[2019-02-23] MEDS: CHOLECALCIFEROL (VITAMIN D3) 50,000 UNIT CAPSULE PO SCH (07:52)
[2019-02-23] MEDS: GABAPENTIN 300 MG CAPSULE. PO SCH ×3 (07:52→19:10)
[2019-02-23] MEDS: SERTRALINE 25 MG TABLET. PO SCH (07:53)
[2019-02-23] MEDS: ACETAMINOPHEN 325 MG TABLET PO PRN (08:43)
[2019-02-23 15:24] VITALS: BP 123/54
[2019-02-23] MEDS: FAMOTIDINE 20 MG TABLET PO SCH (19:10)
--- NOTE | 2019-02-23 22:57 | PDOC ---
Exam Note: Luis E Note: Please also refer to the separate dictated note~for this date of service dictated separately.~Patient seen individually. Discussed the patient with Nursing staff reviewed the chart.~Reviewed interim history and current functioning. Reviewed vital signs,~Labs/ Radiology~and current medications noted below. Continue current treatment with the changes noted in the dictated addendum note Assessment: Vital Signs/I&O: Vital Signs Date Time Temp Pulse Resp B/P (MAP) Pulse Ox O2 Delivery O2 Flow Rate FiO2 02/23/19 15:24 97.9 79 19 123/54 (77) 95 02/23/19 06:02 Room Air I & O 02/22/19 02/22/19 02/23/19 15:00 23:00 07:00 Intake Total 480 ml 240 ml Balance 480 ml 240 ml Current Medications: Meds: Current Medications Medications (Trade) Dose Ordered Sig/Deuce Route PRN Reason Start Time Stop Time Status Last Admin Dose Admin Sertraline HCl (Zoloft) 75 mg DAILY PO 02/23/19 09:00 02/23/19 07:53 I have reviewed the current psychotropics carefully including drug interactions. Risk benefit ratio favors no change other than as noted in my dictated progress note. Diagnosis: Problems: (1) Anxiety disorder (2) Major depressive disorder, recurrent episode (3) Mild cognitive impairment JESSICA OSPINA MD Feb 23, 2019 22:57
[2019-02-24] MEDS: LEVOTHYROXINE 88 MCG TABLET PO SCH (05:48)
[2019-02-24 05:53] VITALS: BP 149/54
[2019-02-24] MEDS: SERTRALINE 25 MG TABLET. PO SCH (08:04)
[2019-02-24] MEDS: MEMANTINE 10 MG TABLET. PO SCH ×2 (08:04→19:19)
[2019-02-24] MEDS: POTASSIUM CHLORIDE 20 MEQ TABLET.ER. PO SCH (08:04)
[2019-02-24] MEDS: FUROSEMIDE 40 MG TABLET PO SCH (08:04)
[2019-02-24] MEDS: PANTOPRAZOLE 40 MG TABLET. PO SCH (08:05)
[2019-02-24] MEDS: ARIPiprazole 2 MG TABLET PO SCH (08:05)
[2019-02-24] MEDS: LACTOBACILLUS RHAMNOSUS GG 1 CAPSULE. PO SCH (08:05)
[2019-02-24] MEDS: GABAPENTIN 300 MG CAPSULE. PO SCH ×3 (08:07→19:19)
[2019-02-24 14:33] VITALS: BP 145/90
--- NOTE | 2019-02-24 15:13 | PN ---
DATE: 02/22/2019 PSYCHIATRIC PROGRESS NOTE This is a late entry of 02/22/2019. Covers elements not covered in my initial note. SUBJECTIVE: I met with the patient in the evening. The patient slept 7 hours previous night. Overall, she does have some short-term memory deficits, gets anxious, but doing reasonably well. She is somewhat less distractible. REVIEW OF SYSTEMS: No CV, , pulmonary, eye, ENT system symptoms on review. MENTAL STATUS EXAM: The patient is oriented to herself and situation. Speech is coherent at times, somewhat rapid consequent to anxiety. Abstraction fair. Computation, able to do one step on Serial 7's. No active suicidal or homicidal ideation. Attention span is short. LABORATORY DATA: Reviewed. IMPRESSION: Major depressive disorder, recurrent, in partial remission; major neurocognitive disorder; early Alzheimer; vascular with depression; history of delusion; anxiety disorder, unspecified. PLAN: Continue current psychotropics and increase Zoloft to 75 mg a day on 02/23/2019. Maintain Abilify 1 mg a day, Namenda 10 mg b.i.d. Adjust further as clinically indicated. MAN Reg OSPINA MD DR: INOCENCIA/arlene JOB#: [id number] / [id number]
[2019-02-24 15:47] VITALS: BP 119/73
[2019-02-24] MEDS: FAMOTIDINE 20 MG TABLET PO SCH (19:19)
--- NOTE | 2019-02-24 22:36 | PDOC ---
Exam Note: Luis E Note: Please also refer to the separate dictated note~for this date of service dictated separately.~Patient seen individually. Discussed the patient with Nursing staff reviewed the chart.~Reviewed interim history and current functioning. Reviewed vital signs,~Labs/ Radiology~and current medications noted below. Continue current treatment with the changes noted in the dictated addendum note Assessment: Vital Signs/I&O: Vital Signs Date Time Temp Pulse Resp B/P (MAP) Pulse Ox O2 Delivery O2 Flow Rate FiO2 02/24/19 15:47 97.9 61 16 119/73 (88) 95 02/24/19 14:33 Room Air I & O 02/23/19 02/23/19 02/24/19 15:00 23:00 07:00 Intake Total 960 ml 360 ml Balance 960 ml 360 ml Current Medications: I have reviewed the current psychotropics carefully including drug interactions. Risk benefit ratio favors no change other than as noted in my dictated progress note. Diagnosis: Problems: (1) Anxiety disorder (2) Major depressive disorder, recurrent episode (3) Mild cognitive impairment JESSICA OSPINA MD Feb 24, 2019 22:36
[2019-02-25] MEDS: LEVOTHYROXINE 88 MCG TABLET PO SCH (05:29)
[2019-02-25 05:47] VITALS: BP 156/68
[2019-02-25] MEDS: MEMANTINE 10 MG TABLET. PO SCH ×2 (07:43→19:14)
[2019-02-25] MEDS: FUROSEMIDE 40 MG TABLET PO SCH (07:43)
[2019-02-25] MEDS: ARIPiprazole 2 MG TABLET PO SCH (07:44)
[2019-02-25] MEDS: SERTRALINE 25 MG TABLET. PO SCH (07:45)
[2019-02-25] MEDS: PANTOPRAZOLE 40 MG TABLET. PO SCH (07:45)
[2019-02-25] MEDS: LACTOBACILLUS RHAMNOSUS GG 1 CAPSULE. PO SCH (07:45)
[2019-02-25] MEDS: POTASSIUM CHLORIDE 20 MEQ TABLET.ER. PO SCH (07:45)
[2019-02-25] MEDS: GABAPENTIN 300 MG CAPSULE. PO SCH ×3 (07:48→19:14)
[2019-02-25] MEDS: ACETAMINOPHEN 325 MG TABLET PO PRN ×2 (10:09→20:20)
[2019-02-25 16:12] VITALS: BP 124/74
[2019-02-25] MEDS: FAMOTIDINE 20 MG TABLET PO SCH (19:14)
--- NOTE | 2019-02-25 19:25 | PN ---
DATE: 02/24/2019 PSYCHIATRIC PROGRESS NOTE This late entry 02/24/2019, covers the elements not covered in my initial note. SUBJECTIVE: I met with the patient evening of 02/24/2019. The patient slept 5-1/4 hours previous night. Overall, she is doing a little better, less anxious, but still hyperverbal as I met with her at length. Compliant with medications. She seems to comfort other patients when they get agitated, quite caring. REVIEW OF SYSTEMS: No CV, , pulmonary, eye system symptoms on review. MENTAL STATUS EXAM: Oriented to herself and situation. Speech is coherent, at times a little pressured. Abstraction fair, computation impaired, language function intact, attention span short. Mood and affect is improved. LABORATORY DATA: Reviewed. IMPRESSION: Unchanged from initial note. PLAN: No change from initial note. MAN Reg OSPINA MD DR: INOCENCIA/arlene JOB#: [id number] / [id number]
--- NOTE | 2019-02-25 22:08 | PDOC ---
Exam Note: Luis E Note: Please also refer to the separate dictated note~for this date of service dictated separately.~Patient seen individually. Discussed the patient with Nursing staff reviewed the chart.~Reviewed interim history and current functioning. Reviewed vital signs,~Labs/ Radiology~and current medications noted below. Continue current treatment with the changes noted in the dictated addendum note Assessment: Vital Signs/I&O: Vital Signs Date Time Temp Pulse Resp B/P (MAP) Pulse Ox O2 Delivery O2 Flow Rate FiO2 02/25/19 16:12 97.7 60 17 124/74 (91) 99 02/25/19 05:47 Room Air I & O 02/24/19 02/24/19 02/25/19 14:59 22:59 06:59 Intake Total 720 ml 240 ml 120 ml Balance 720 ml 240 ml 120 ml Current Medications: I have reviewed the current psychotropics carefully including drug interactions. Risk benefit ratio favors no change other than as noted in my dictated progress note. Diagnosis: Problems: (1) Anxiety disorder (2) Major depressive disorder, recurrent episode (3) Mild cognitive impairment JESSICA OSPINA MD Feb 25, 2019 22:08
--- NOTE | 2019-02-26 00:29 | PN ---
DATE: PSYCHIATRIC PROGRESS NOTE DATE OF SERVICE: 02/23/2019 This late entry February 23 covers elements not covered in my initial note. SUBJECTIVE: I met with the patient on the evening of February 23 and she was staffed at a lengthy treatment team meeting with her daughter on February 23. I reviewed the patient's history, diagnosis, family's concerns about placement options. The patient is sleeping about 7 hours a night, appetite 100%, compliant with medications, calm, pleasant. Daughter had been living with the patient for some time before her father in the intermediate and then even after he had she kept staying with the patient due to the patient's increased confusion, forgetfulness. Father had been in the intermediate for about [address] head shows mild chronic changes, old CVA. Daughter had questions whether the patient might have Parkinson's. Dr. Wilson has seen the patient for a Neurology consult and no mention of Parkinson's is noted. Daughter indicated the neurologist in [place] had suggested a SPECT scan at [facility] if further clarification was needed on the Parkinson's and I will defer this to the family. REVIEW OF SYSTEMS: No CV, , pulmonary, eye system symptoms on review. MENTAL STATUS EXAM: Oriented to herself and situation. Speech is coherent, somewhat rapid at times due to anxiety. Abstraction fair. Computation impaired. Language function intact. Attention span short. Mood and affect showing some improvement, though the anxiety persists. She does have short term memory deficits. LABORATORY DATA: Reviewed. IMPRESSION: Major neurocognitive disorder, early Alzheimer, vascular with depression, delusion; anxiety disorder, unspecified; adjustment disorder with depressed mood and anxiety. PLAN: Daughter shared several examples of increased confusion, forgetfulness and risks, living alone by herself. Family is looking at placement options and addressed this at length. We will continue psychotropics mentioned in my initial note for now. JESSICA OSPINA MD DR: INOCENCIA/arlene JOB#: [id number] / [id number]
[2019-02-26] MEDS: LEVOTHYROXINE 88 MCG TABLET PO SCH (05:45)
[2019-02-26 06:03] VITALS: BP 152/91
[2019-02-26] MEDS: POTASSIUM CHLORIDE 20 MEQ TABLET.ER. PO SCH (07:21)
[2019-02-26] MEDS: FUROSEMIDE 40 MG TABLET PO SCH (07:22)
[2019-02-26] MEDS: LACTOBACILLUS RHAMNOSUS GG 1 CAPSULE. PO SCH (07:22)
[2019-02-26] MEDS: PANTOPRAZOLE 40 MG TABLET. PO SCH (07:22)
[2019-02-26] MEDS: SERTRALINE 25 MG TABLET. PO SCH (07:23)
[2019-02-26] MEDS: MEMANTINE 10 MG TABLET. PO SCH ×2 (07:24→19:31)
[2019-02-26] MEDS: ARIPiprazole 2 MG TABLET PO SCH (07:24)
[2019-02-26] MEDS: GABAPENTIN 300 MG CAPSULE. PO SCH ×3 (07:50→19:31)
[2019-02-26] MEDS: ACETAMINOPHEN 325 MG TABLET PO PRN ×2 (09:55→22:31)
[2019-02-26 15:49] VITALS: BP 135/58
[2019-02-26] MEDS: FAMOTIDINE 20 MG TABLET PO SCH (19:31)
[2019-02-26] MEDS: AMOXICILLIN/K CLAV 500/125MG TABLET. PO SCH (19:33)
--- NOTE | 2019-02-26 22:49 | PDOC ---
Exam Note: Luis E Note: Please also refer to the separate dictated note~for this date of service dictated separately.~Patient seen individually. Discussed the patient with Nursing staff reviewed the chart.~Reviewed interim history and current functioning. Reviewed vital signs,~Labs/ Radiology~and current medications noted below. Continue current treatment with the changes noted in the dictated addendum note Assessment: Vital Signs/I&O: Vital Signs Date Time Temp Pulse Resp B/P (MAP) Pulse Ox O2 Delivery O2 Flow Rate FiO2 02/26/19 15:49 97.2 73 20 135/58 (83) 99 02/25/19 05:47 Room Air I & O 02/25/19 02/25/19 02/26/19 15:00 23:00 07:00 Intake Total 480 ml 480 ml Balance 480 ml 480 ml Current Medications: Meds: Current Medications Medications (Trade) Dose Ordered Sig/Deuce Route PRN Reason Start Time Stop Time Status Last Admin Dose Admin Amoxicillin/ Clavulanate Potassium (Augmentin 500/ 125mg) 1 tab BID PO 02/26/19 21:00 03/07/19 20:59 02/26/19 19:33 I have reviewed the current psychotropics carefully including drug interactions. Risk benefit ratio favors no change other than as noted in my dictated progress note. Diagnosis: Problems: (1) Anxiety disorder (2) Major depressive disorder, recurrent episode (3) Mild cognitive impairment JESSICA OSPINA MD Feb 26, 2019 22:49
[2019-02-27] MEDS: LEVOTHYROXINE 88 MCG TABLET PO SCH (05:34)
[2019-02-27 05:35] VITALS: BP 162/71
[2019-02-27] MEDS: FUROSEMIDE 40 MG TABLET PO SCH (08:08)
[2019-02-27] MEDS: AMOXICILLIN/K CLAV 500/125MG TABLET. PO SCH ×2 (08:08→19:11)
[2019-02-27] MEDS: ARIPiprazole 2 MG TABLET PO SCH (08:09)
[2019-02-27] MEDS: POTASSIUM CHLORIDE 20 MEQ TABLET.ER. PO SCH (08:09)
[2019-02-27] MEDS: SERTRALINE 25 MG TABLET. PO SCH (08:11)
[2019-02-27] MEDS: MEMANTINE 10 MG TABLET. PO SCH ×2 (08:11→19:11)
[2019-02-27] MEDS: PANTOPRAZOLE 40 MG TABLET. PO SCH (08:11)
[2019-02-27] MEDS: LACTOBACILLUS RHAMNOSUS GG 1 CAPSULE. PO SCH (08:13)
[2019-02-27] MEDS: GABAPENTIN 300 MG CAPSULE. PO SCH ×3 (08:17→19:11)
[2019-02-27 16:34] VITALS: BP 133/59
[2019-02-27] MEDS ORDERED: BENZOCAINE/MENTHOL LOZNGE 18'S BOX. PO PRN (18:30)
[2019-02-27] MEDS: FAMOTIDINE 20 MG TABLET PO SCH (19:11)
[2019-02-27] MEDS: ACETAMINOPHEN 325 MG TABLET PO PRN (19:16)
--- NOTE | 2019-02-27 22:30 | PDOC ---
Exam Note: Luis E Note: Please also refer to the separate dictated note~for this date of service dictated separately.~Patient seen individually. Discussed the patient with Nursing staff reviewed the chart.~Reviewed interim history and current functioning. Reviewed vital signs,~Labs/ Radiology~and current medications noted below. Continue current treatment with the changes noted in the dictated addendum note Assessment: Vital Signs/I&O: Vital Signs Date Time Temp Pulse Resp B/P (MAP) Pulse Ox O2 Delivery O2 Flow Rate FiO2 02/27/19 16:34 97.6 85 20 133/59 (83) 98 02/27/19 05:35 Room Air I & O 02/26/19 02/26/19 02/27/19 14:59 22:59 06:59 Intake Total 840 ml 480 ml Balance 840 ml 480 ml Current Medications: I have reviewed the current psychotropics carefully including drug interactions. Risk benefit ratio favors no change other than as noted in my dictated progress note. Diagnosis: Problems: (1) Anxiety disorder (2) Major depressive disorder, recurrent episode (3) Mild cognitive impairment JESSICA OSPINA MD Feb 27, 2019 22:30
--- NOTE | 2019-02-28 04:21 | PN ---
DATE: 02/26/2019 PSYCHIATRIC PROGRESS NOTE This late entry 02/26/2019 covers elements not covered in my initial note. SUBJECTIVE: Per nursing report, the patient has had a good day, has been pleasant, slept 3/4 hours previous night. She is tolerating her current psychotropics, Zoloft 50 mg a day, Abilify 1 mg a day, Namenda 10 mg b.i.d. REVIEW OF SYSTEMS: No suicidal or homicidal ideation. Mood and affect are improved. LABORATORY DATA: Reviewed. IMPRESSION: Unchanged from initial note. PLAN: No change from initial note. MAN Reg OSPINA MD DR: INOCENCIA/arlene JOB#: [id number] / [id number]
--- NOTE | 2019-02-28 04:23 | PN ---
DATE: 02/25/2019 PSYCHIATRIC PROGRESS NOTE This late entry 02/25/2019 covers elements not covered in my initial note. SUBJECTIVE: I met with the patient in the evening. The patient slept 7-1/2 hours previous night. She did well in the morning, complained of some fibromyalgia symptoms, received Tylenol. She is resistive to talking about moving to assisted living and I addressed this with her at some length in the evening. REVIEW OF SYSTEMS: No CV, , pulmonary, eye system symptoms on review. MENTAL STATUS EXAM: Reasonably oriented. Speech is coherent, a little rapid at times due to anxiety, especially as we discussed assisted living where she does not want to go to. Abstraction fair, computation is somewhat impaired, language function intact. Mood and affect overall improved. LABORATORY DATA: Reviewed. IMPRESSION: Unchanged from initial note. PLAN: No change from initial note. MAN Reg OSPINA MD DR: INOCENCIA/arlene JOB#: [id number] / [id number]
[2019-02-28 05:44] VITALS: BP 156/74
[2019-02-28] MEDS: LEVOTHYROXINE 88 MCG TABLET PO SCH (05:59)
[2019-02-28] MEDS: POTASSIUM CHLORIDE 20 MEQ TABLET.ER. PO SCH (07:32)
[2019-02-28] MEDS: PANTOPRAZOLE 40 MG TABLET. PO SCH (07:32)
[2019-02-28] MEDS: ARIPiprazole 2 MG TABLET PO SCH (07:33)
[2019-02-28] MEDS: AMOXICILLIN/K CLAV 500/125MG TABLET. PO SCH ×2 (07:33→19:21)
[2019-02-28] MEDS: LACTOBACILLUS RHAMNOSUS GG 1 CAPSULE. PO SCH (07:33)
[2019-02-28] MEDS: MEMANTINE 10 MG TABLET. PO SCH ×2 (07:34→19:21)
[2019-02-28] MEDS: SERTRALINE 25 MG TABLET. PO SCH (07:34)
[2019-02-28] MEDS: FUROSEMIDE 40 MG TABLET PO SCH (07:34)
[2019-02-28] MEDS: GABAPENTIN 300 MG CAPSULE. PO SCH ×3 (07:40→19:21)
[2019-02-28 08:06] LABS: BASO % 1 % (0-3); EOS # 0.1 x10^3/uL (0.0-0.7); EOS % 2 % (0-3); HEMATOCRIT 41.7 % (36.0-47.0); HEMOGLOBIN 13.7 g/dL (12.0-15.5); LYMPH # 1.2 x10^3/uL (1.0-4.8); LYMPH % 18 % (24-48); MEAN CORPUSCULAR HEMOGLOBIN 29 pg (25-35); MEAN CORPUSCULAR HGB CONC 33 g/dL (31-37); MEAN CORPUSCULAR VOLUME 89 fL (79-100); MONO # 0.8 x10^3/uL (0.0-1.1); MONO % 11 % (0-9); NEUT # 4.8 x10^3uL (1.8-7.7); NEUT % 69 % (31-73); PLATELET COUNT 163 x10^3/uL (140-400); RED BLOOD COUNT 4.69 x10^6/uL (3.50-5.40); RED CELL DISTRIBUTION WIDTH 13.6 % (11.5-14.5); WHITE BLOOD COUNT 6.9 x10^3/uL (4.0-11.0)
[2019-02-28 08:17] LABS: ALBUMIN 3.1 g/dL (3.4-5.0); ALBUMIN/GLOBULIN RATIO 0.9 (1.0-1.7); CALCIUM 9.1 mg/dL (8.5-10.1); CREATININE 0.8 mg/dL (0.6-1.0); GFR 68.5; POTASSIUM 3.9 mmol/L (3.5-5.1); TOTAL BILIRUBIN 0.5 mg/dL (0.2-1.0); TOTAL PROTEIN 6.5 g/dL (6.4-8.2)
[2019-02-28 15:46] VITALS: BP 133/67
[2019-02-28] MEDS: FAMOTIDINE 20 MG TABLET PO SCH (19:21)
[2019-02-28] MEDS: ACETAMINOPHEN 325 MG TABLET PO PRN (20:31)
--- NOTE | 2019-02-28 22:30 | PDOC ---
Exam Note: Luis E Note: Please also refer to the separate dictated note~for this date of service dictated separately.~Patient seen individually. Discussed the patient with Nursing staff reviewed the chart.~Reviewed interim history and current functioning. Reviewed vital signs,~Labs/ Radiology~and current medications noted below. Continue current treatment with the changes noted in the dictated addendum note Assessment: Vital Signs/I&O: Vital Signs Date Time Temp Pulse Resp B/P (MAP) Pulse Ox O2 Delivery O2 Flow Rate FiO2 02/28/19 15:46 98.1 78 17 133/67 (89) 98 02/27/19 05:35 Room Air I & O 02/27/19 02/27/19 02/28/19 14:59 22:59 06:59 Intake Total 960 ml 240 ml 240 ml Balance 960 ml 240 ml 240 ml Labs: Laboratory Tests Test 02/28/19 07:50 White Blood Count 6.9 x10^3/uL (4.0-11.0) Red Blood Count 4.69 x10^6/uL (3.50-5.40) Hemoglobin 13.7 g/dL (12.0-15.5) Hematocrit 41.7 % (36.0-47.0) Mean Corpuscular Volume 89 fL (79-100) Mean Corpuscular Hemoglobin 29 pg (25-35) Mean Corpuscular Hemoglobin Concent 33 g/dL (31-37) Red Cell Distribution Width 13.6 % (11.5-14.5) Platelet Count 163 x10^3/uL (140-400) Neutrophils (%) (Auto) 69 % (31-73) Lymphocytes (%) (Auto) 18 % (24-48) L Monocytes (%) (Auto) 11 % (0-9) H Eosinophils (%) (Auto) 2 % (0-3) Basophils (%) (Auto) 1 % (0-3) Neutrophils # (Auto) 4.8 x10^3uL (1.8-7.7) Lymphocytes # (Auto) 1.2 x10^3/uL (1.0-4.8) Monocytes # (Auto) 0.8 x10^3/uL (0.0-1.1) Eosinophils # (Auto) 0.1 x10^3/uL (0.0-0.7) Basophils # (Auto) 0.0 x10^3/uL (0.0-0.2) Sodium Level 144 mmol/L (136-145) Potassium Level 3.9 mmol/L (3.5-5.1) Chloride Level 106 mmol/L (98-107) Carbon Dioxide Level 31 mmol/L (21-32) Anion Gap 7 (6-14) Blood Urea Nitrogen 16 mg/dL (7-20) Creatinine 0.8 mg/dL (0.6-1.0) Estimated GFR (Cockcroft-Gault) 68.5 BUN/Creatinine Ratio 20 (6-20) Glucose Level 111 mg/dL (70-99) H Calcium Level 9.1 mg/dL (8.5-10.1) Total Bilirubin 0.5 mg/dL (0.2-1.0) Aspartate Amino Transferase (AST) 15 U/L (15-37) Alanine Aminotransferase (ALT) 18 U/L (14-59) Alkaline Phosphatase 60 U/L (46-116) Total Protein 6.5 g/dL (6.4-8.2) Albumin 3.1 g/dL (3.4-5.0) L Albumin/Globulin Ratio 0.9 (1.0-1.7) L Current Medications: I have reviewed the current psychotropics carefully including drug interactions. Risk benefit ratio favors no change other than as noted in my dictated progress note. Diagnosis: Problems: (1) Anxiety disorder (2) Major depressive disorder, recurrent episode (3) Mild cognitive impairment JESSICA OSPINA MD Feb 28, 2019 22:30
[2019-03-01 05:28] VITALS: BP 155/77
[2019-03-01] MEDS: LEVOTHYROXINE 88 MCG TABLET PO SCH (05:47)
[2019-03-01] MEDS: PANTOPRAZOLE 40 MG TABLET. PO SCH (07:12)
[2019-03-01] MEDS: AMOXICILLIN/K CLAV 500/125MG TABLET. PO SCH ×2 (07:13→20:07)
[2019-03-01] MEDS: POTASSIUM CHLORIDE 20 MEQ TABLET.ER. PO SCH (07:13)
[2019-03-01] MEDS: LACTOBACILLUS RHAMNOSUS GG 1 CAPSULE. PO SCH (07:13)
[2019-03-01] MEDS: ARIPiprazole 2 MG TABLET PO SCH (07:13)
[2019-03-01] MEDS: MEMANTINE 10 MG TABLET. PO SCH ×2 (07:14→20:07)
[2019-03-01] MEDS: FUROSEMIDE 40 MG TABLET PO SCH (07:14)
[2019-03-01] MEDS: SERTRALINE 25 MG TABLET. PO SCH (07:14)
[2019-03-01] MEDS: GABAPENTIN 300 MG CAPSULE. PO SCH ×3 (07:16→20:07)
[2019-03-01 15:46] VITALS: BP 127/78
--- NOTE | 2019-03-01 17:59 | PN ---
DATE: PSYCHIATRIC PROGRESS NOTE This is late entry on 02/27/2019. Covers elements not covered in my initial note. SUBJECTIVE: I met with the patient evening of 02/27/2019. The patient slept 7-1/4 hours previous night. She does have a sinusitis, was started on Augmentin and we will add some throat lozenges for symptomatic treatment. Overall, she is doing better, still anxious, hyperverbal, not fully accepting, going to assisted living and I addressed this with her at some length. REVIEW OF SYSTEMS: As above. No CV, , eye system symptoms on review. MENTAL STATUS EXAM: Oriented to herself and situation. Speech is coherent, rapid at times. Abstraction fair, computation impaired, language function intact, attention span short. Mood and affect is improved. IMPRESSION: Unchanged from initial note. PLAN: No change from initial note other than noted above. MAN Reg OSPINA MD DR: INOCENCIA/arlene JOB#: [id number] / [id number]
[2019-03-01] MEDS: FAMOTIDINE 20 MG TABLET PO SCH (20:07)
--- NOTE | 2019-03-01 22:07 | PDOC ---
Exam Note: Luis E Note: Please also refer to the separate dictated note~for this date of service dictated separately.~Patient seen individually. Discussed the patient with Nursing staff reviewed the chart.~Reviewed interim history and current functioning. Reviewed vital signs,~Labs/ Radiology~and current medications noted below. Continue current treatment with the changes noted in the dictated addendum note Assessment: Vital Signs/I&O: Vital Signs Date Time Temp Pulse Resp B/P (MAP) Pulse Ox O2 Delivery O2 Flow Rate FiO2 03/01/19 15:46 97.8 55 16 127/78 (94) 97 02/27/19 05:35 Room Air I & O 02/28/19 02/28/19 03/01/19 14:59 22:59 06:59 Intake Total 560 ml 480 ml Balance 560 ml 480 ml Current Medications: I have reviewed the current psychotropics carefully including drug interactions. Risk benefit ratio favors no change other than as noted in my dictated progress note. Diagnosis: Problems: (1) Anxiety disorder (2) Major depressive disorder, recurrent episode (3) Mild cognitive impairment JESSICA OSPINA MD Mar 01, 2019 22:07
--- NOTE | 2019-03-02 05:15 | PN ---
DATE: 02/28/2019 PSYCHIATRIC PROGRESS NOTE This late entry 02/28/2019 covers elements not covered in my initial note. SUBJECTIVE: I met with the patient in the evening. The patient slept 8 hours previous night. She has been quite appropriate, interactive whereas addressed her transition to an assisted living and she is still not accepting of this. REVIEW OF SYSTEMS: Positive for some pedal edema and we provided her RODNEY hose that she uses at home. No CV, , pulmonary, eye, ENT system symptoms on review. MENTAL STATUS EXAM: The patient is oriented to herself and situation. Speech is coherent, still somewhat pressured at times. Abstraction fair, computation impaired. Mood and affect improved. LABORATORY DATA: Reviewed. IMPRESSION: Unchanged from initial note. PLAN: No change from initial note other than the RODNEY hose noted above. MAN Reg OSPINA MD DR: INOCENCIA/arlene JOB#: [id number] / [id number]
[2019-03-02] MEDS: LEVOTHYROXINE 88 MCG TABLET PO SCH (05:53)
[2019-03-02 06:27] VITALS: BP 150/72
[2019-03-02] MEDS: LACTOBACILLUS RHAMNOSUS GG 1 CAPSULE. PO SCH (07:29)
[2019-03-02] MEDS: SERTRALINE 25 MG TABLET. PO SCH (07:29)
[2019-03-02] MEDS: GABAPENTIN 300 MG CAPSULE. PO SCH ×3 (07:29→19:40)
[2019-03-02] MEDS: AMOXICILLIN/K CLAV 500/125MG TABLET. PO SCH ×2 (07:29→19:39)
[2019-03-02] MEDS: POTASSIUM CHLORIDE 20 MEQ TABLET.ER. PO SCH (07:30)
[2019-03-02] MEDS: PANTOPRAZOLE 40 MG TABLET. PO SCH (07:35)
[2019-03-02] MEDS: ARIPiprazole 2 MG TABLET PO SCH (07:36)
[2019-03-02] MEDS: FUROSEMIDE 40 MG TABLET PO SCH (07:36)
[2019-03-02] MEDS: MEMANTINE 10 MG TABLET. PO SCH ×2 (07:36→19:40)
[2019-03-02] MEDS: CHOLECALCIFEROL (VITAMIN D3) 50,000 UNIT CAPSULE PO SCH (07:37)
[2019-03-02 15:24] VITALS: BP 117/64
[2019-03-02] MEDS: FAMOTIDINE 20 MG TABLET PO SCH (19:39)
--- NOTE | 2019-03-02 22:09 | PDOC ---
Exam Note: Luis E Note: Please also refer to the separate dictated note~for this date of service dictated separately.~Patient seen individually. Discussed the patient with Nursing staff reviewed the chart.~Reviewed interim history and current functioning. Reviewed vital signs,~Labs/ Radiology~and current medications noted below. Continue current treatment with the changes noted in the dictated addendum note Assessment: Vital Signs/I&O: Vital Signs Date Time Temp Pulse Resp B/P (MAP) Pulse Ox O2 Delivery O2 Flow Rate FiO2 03/02/19 15:24 99.1 74 16 117/64 (81) 99 Room Air I & O 03/01/19 03/01/19 03/02/19 14:59 22:59 06:59 Intake Total 600 ml 480 ml 120 ml Balance 600 ml 480 ml 120 ml Current Medications: I have reviewed the current psychotropics carefully including drug interactions. Risk benefit ratio favors no change other than as noted in my dictated progress note. Diagnosis: Problems: (1) Anxiety disorder (2) Major depressive disorder, recurrent episode (3) Mild cognitive impairment JESSICA OSPINA MD Mar 02, 2019 22:09
[2019-03-03] MEDS: LEVOTHYROXINE 88 MCG TABLET PO SCH (05:46)
[2019-03-03 06:12] VITALS: BP 161/78
[2019-03-03] MEDS: LACTOBACILLUS RHAMNOSUS GG 1 CAPSULE. PO SCH (07:58)
[2019-03-03] MEDS: PANTOPRAZOLE 40 MG TABLET. PO SCH (07:59)
[2019-03-03] MEDS: ARIPiprazole 2 MG TABLET PO SCH (07:59)
[2019-03-03] MEDS: AMOXICILLIN/K CLAV 500/125MG TABLET. PO SCH ×2 (08:00→19:16)
[2019-03-03] MEDS: POTASSIUM CHLORIDE 20 MEQ TABLET.ER. PO SCH (08:00)
[2019-03-03] MEDS: MEMANTINE 10 MG TABLET. PO SCH ×2 (08:00→19:16)
[2019-03-03] MEDS: GABAPENTIN 300 MG CAPSULE. PO SCH ×3 (08:00→19:18)
[2019-03-03] MEDS: SERTRALINE 25 MG TABLET. PO SCH (08:01)
[2019-03-03] MEDS: FUROSEMIDE 40 MG TABLET PO SCH (08:01)
[2019-03-03 15:49] VITALS: BP 115/62
--- NOTE | 2019-03-03 17:59 | PN ---
DATE: 03/01/2019 PSYCHIATRIC PROGRESS NOTE This late entry, 03/01/2019, covers elements not covered in my initial note. SUBJECTIVE: I met with the patient in the evening of 03/01/2019. The patient slept reasonably well previous night. She has been calm, cooperative, pleasant; a little more acceptable of going to assisted living. Compliant with medications. REVIEW OF SYSTEMS: Complains of pedal edema, better with the RODNEY hose we have initiated. No CV, , pulmonary, eye, ENT system symptoms on review. MENTAL STATUS EXAM: Reasonably oriented. Speech is coherent, a little pressured at times, typical for her. Abstraction fair, computation impaired, language function intact, attention span short. Mood and affect showing improvement. LABORATORY DATA: Reviewed. IMPRESSION: Unchanged from initial note. PLAN: No change from initial note. MAN Reg OSPINA MD DR: INOCENCIA/arlene JOB#: [id number] / [id number]
[2019-03-03] MEDS: FAMOTIDINE 20 MG TABLET PO SCH (19:16)
--- NOTE | 2019-03-04 00:15 | PN ---
DATE: 03/02/2019 PSYCHIATRIC PROGRESS NOTE This late entry 03/02/2019 covers elements not covered in my initial note. SUBJECTIVE: I met with the patient in the evening of 03/02/2019 at length in her room. The patient slept 7-1/2 hours previous night. She has been interactive, somewhat anxious, but reasonably oriented. REVIEW OF SYSTEMS: She still complains of pedal edema bilaterally and she has RODNEY hose. No CV, , pulmonary, eye, ENT system symptoms on review. MENTAL STATUS EXAM: Oriented to herself and situation. Speech is coherent, abstraction fair, computation reasonable, language function intact, attention span short. Mood and affect was improved. We discussed her placement at the assisted living at some length. LABORATORY DATA: Reviewed. IMPRESSION: Unchanged from initial note. PLAN: No change from initial note. MAN Reg OSPINA MD DR: INOCENCIA/arlene JOB#: [id number] / [id number]
[2019-03-04] MEDS ORDERED: ACET325T9 PO (02:07)
[2019-03-04] MEDS ORDERED: AMOX1TAB10 PO (02:08)
[2019-03-04] MEDS ORDERED: ARIP2TAB35 PO (02:11)
[2019-03-04] MEDS ORDERED: BENZ1LOZ48 PO (02:12)
[2019-03-04] MEDS ORDERED: CHOL500021 PO (02:14)
[2019-03-04] MEDS ORDERED: MAG30ORA2 PO (02:16)
[2019-03-04] MEDS ORDERED: MAGN2400 PO (02:17)
[2019-03-04] MEDS ORDERED: SERT50TA PO (02:18)
[2019-03-04] MEDS: LEVOTHYROXINE 88 MCG TABLET PO SCH (05:31)
[2019-03-04] MEDS: ACETAMINOPHEN 325 MG TABLET PO PRN (05:31)
[2019-03-04 06:08] VITALS: BP 162/72
[2019-03-04] MEDS: AMOXICILLIN/K CLAV 500/125MG TABLET. PO SCH (09:00)
[2019-03-04] MEDS: ARIPiprazole 2 MG TABLET PO SCH (09:12)
[2019-03-04] MEDS: SERTRALINE 25 MG TABLET. PO SCH (09:12)
[2019-03-04] MEDS: MEMANTINE 10 MG TABLET. PO SCH (09:13)
[2019-03-04] MEDS: POTASSIUM CHLORIDE 20 MEQ TABLET.ER. PO SCH (09:13)
[2019-03-04] MEDS: LACTOBACILLUS RHAMNOSUS GG 1 CAPSULE. PO SCH (09:13)
[2019-03-04] MEDS: PANTOPRAZOLE 40 MG TABLET. PO SCH (09:13)
[2019-03-04] MEDS: FUROSEMIDE 40 MG TABLET PO SCH (09:13)
[2019-03-04] MEDS: GABAPENTIN 300 MG CAPSULE. PO SCH (09:15)
--- NOTE | 2019-03-04 10:07 | PDOC ---
Exam Note: Luis E Note: Late entry for DOS 03/03/2019. Please also refer to the separate dictated note~for this date of service dictated separately.~Patient seen individually. Discussed the patient with Nursing staff reviewed the chart.~Reviewed interim history and current functioning. Reviewed vital signs,~Labs/ Radiology~and current medications noted below. Continue current treatment with the changes noted in the dictated addendum note Assessment: Vital Signs/I&O: Vital Signs Date Time Temp Pulse Resp B/P (MAP) Pulse Ox O2 Delivery O2 Flow Rate FiO2 03/04/19 06:08 97.4 78 14 162/72 (102) 95 Room Air I & O 03/03/19 03/03/19 03/04/19 14:59 22:59 06:59 Intake Total 960 ml 240 ml 120 ml Balance 960 ml 240 ml 120 ml Current Medications: I have reviewed the current psychotropics carefully including drug interactions. Risk benefit ratio favors no change other than as noted in my dictated progress note. Diagnosis: Problems: (1) Dementia with behavioral disturbance (2) Anxiety disorder (3) Major depressive disorder, recurrent episode (4) Mild cognitive impairment JESSICA OSPINA MD Mar 04, 2019 10:07
--- NOTE | 2019-03-04 13:04 | PN ---
DATE: 03/03/2019 PSYCHIATRIC PROGRESS NOTE This late entry 03/03/2019 covers the elements not covered in my initial note. SUBJECTIVE: I met with the patient in the evening and staffed at treatment team meeting earlier in the day. The patient slept 7-1/2 hours. Arrangements have been made to transition her to [facility]. We discussed her history, progress, family's input. Appetite is fair. REVIEW OF SYSTEMS: Positive for pedal edema. She does have RODNEY hose. No CV, , pulmonary, eye, ENT system symptoms on review. MENTAL STATUS EXAM: Oriented to herself and situation. Speech is coherent, abstraction fair, computation impaired, language function intact, attention span short. Mood and affect is improved. LABORATORY DATA: Reviewed. IMPRESSION: Unchanged from initial note. PLAN: No change from initial note with transition to assisted living on 03/04/2019. MAN Reg OSPINA MD DR: INOCENCIA/arlene JOB#: [id number] / [id number]
--- NOTE | 2019-03-04 18:00 | PDOC ---
Exam Note: Luis E Note: Please also refer to the separate dictated note~for this date of service dictated separately.~Patient seen individually. Discussed the patient with Nursing staff reviewed the chart.~Reviewed interim history and current functioning. Reviewed vital signs,~Labs/ Radiology~and current medications noted below. Continue current treatment with the changes noted in the dictated addendum note Assessment: Vital Signs/I&O: Vital Signs Date Time Temp Pulse Resp B/P (MAP) Pulse Ox O2 Delivery O2 Flow Rate FiO2 03/04/19 06:08 97.4 78 14 162/72 (102) 95 Room Air I & O 03/03/19 03/03/19 03/04/19 15:00 23:00 07:00 Intake Total 960 ml 240 ml 120 ml Balance 960 ml 240 ml 120 ml Current Medications: I have reviewed the current psychotropics carefully including drug interactions. Risk benefit ratio favors no change other than as noted in my dictated progress note. Diagnosis: Problems: (1) Mild cognitive impairment (2) Major depressive disorder, recurrent episode (3) Anxiety disorder (4) Dementia with behavioral disturbance JESSICA OSPINA MD Mar 04, 2019 18:00
--- NOTE | 2019-03-04 19:29 | DS ---
DATE OF DISCHARGE: DISCHARGE SUMMARY/PSYCHIATRIC PROGRESS NOTE REASON FOR ADMISSION: Please refer to the admission history for details. Briefly, the patient is an 83-year-old female referred to us on account of worsening confusion, verbal aggression, anxiety, and paranoia. All of this has worsened since her about a week previous to this admission. She was felt to be unsafe at home and family with the primary care physician helped refer her for inpatient psychiatric stabilization. SIGNIFICANT FINDINGS AND CLINICAL COURSE: Following admission, the patient was seen daily individually by myself from a psychiatric standpoint, medical followup with Dr. Tapia. She did have short term memory deficits, was depressed, and anxious. Adjustments were made in her psychotropics. She seemed to respond to a combination of Zoloft 75 mg a day, augmented with Abilify 1 mg a day, Namenda 10 mg b.i.d., Ativan 0.5 mg t.i.d. p.r.n. anxiety. She did have a sinusitis diagnosed and was treated on amoxicillin b.i.d. for 10 days starting 02/26/2019. REVIEW OF SYSTEMS: Prior to discharge on 03/04/2019, no CV, , pulmonary, eye, ENT system symptoms on review. She does have pedal edema. MENTAL STATUS EXAM: Oriented to herself and situation. Speech is coherent, abstraction fair, computation impaired, language function intact, attention span short. Mood and affect is improved. CONDITION AT DISCHARGE: Improved. FINAL DIAGNOSES: Major depressive disorder with psychotic features, mild cognitive impairment; anxiety disorder, unspecified; impulse control disorder, unspecified. Sinusitis. Rest unchanged from admission. DISCHARGE MEDICATIONS: Please refer to the [facility]AD. DISCHARGE INSTRUCTIONS: Outpatient psychiatric and medical followup at the [facility] as arranged. Time for discharge day management greater than 30 minutes. JESSICA OSPINA MD DR: INOCENCIA/arlene JOB#: [id number] / [id number]
== END 2019-03-04 10:00 | disposition home or self-care (01) | DRG 885 ==
LOC: ER 15:43 → GEROPSY 18:41
PROVIDERS: ADMIT Psychiatry & Neurology Psychiatry; ATTEND Psychiatry & Neurology Psychiatry
DX: F33.3 Major depressive disorder, recurrent, severe with psychotic symptoms (principal); F02.81 Dementia in other diseases classified elsewhere, unspecified severity, with behavioral disturbance; F01.51 Vascular dementia, unspecified severity, with behavioral disturbance; G30.9 Alzheimer's disease, unspecified; G20 Parkinson's disease; F41.1 Generalized anxiety disorder; F63.9 Impulse disorder, unspecified; G47.33 Obstructive sleep apnea (adult) (pediatric); G62.9 Polyneuropathy, unspecified; I11.0 Hypertensive heart disease with heart failure; I50.9 Heart failure, unspecified; K21.9 Gastro-esophageal reflux disease without esophagitis; M79.7 Fibromyalgia; F43.23 Adjustment disorder with mixed anxiety and depressed mood; Z79.899 Other long term (current) drug therapy; F33.41 Major depressive disorder, recurrent, in partial remission; E78.5 Hyperlipidemia, unspecified; E03.9 Hypothyroidism, unspecified; Z81.8 Family history of other mental and behavioral disorders; Z86.73 Personal history of transient ischemic attack (TIA), and cerebral infarction without residual deficits
CPT/HCPCS: 36415; 70450; 80053; 80061; 81001; 82306; 83036; 83540; 83550; 83735; 84436; 84443; 84480; 85025; 86592; 87086; 93005; 99285-25